=== PATIENT | male | born 1955 | race Caucasian/White ===

== ENCOUNTER 2023-02-28 08:58 | Day surgery (SDC) | payer BC ==
[2023-02-28] MEDS ORDERED: Propofol 200 MG/20 ML SDV IV ONE (08:59)
[2023-02-28] MEDS ORDERED: Lactated Ringers 1,000 ML IV SCH (09:00)
[2023-02-28] MEDS ORDERED: Sodium Chloride 0.9% 10 ML Syringe FLUSH PRN (09:00)
[2023-02-28] MEDS ORDERED: Simethicone Drops 40 MG/0.6 ML 30 ML Bottle ONE (10:21)
== END 2023-02-28 12:05 | disposition home or self-care (01) ==
LOC: FB.SDS 08:58
PROVIDERS: ATTEND Surgery
DX: D12.6 Benign neoplasm of colon, unspecified (principal); K42.0 Umbilical hernia with obstruction, without gangrene; K40.20 Bilateral inguinal hernia, without obstruction or gangrene, not specified as recurrent; Z79.82 Long term (current) use of aspirin; Z79.899 Other long term (current) drug therapy; Z87.891 Personal history of nicotine dependence
CPT/HCPCS: 00812; 45385; 88305; A9270; J2704; J7120